=== PATIENT | female | born 1980 | race Caucasian/White ===

== ENCOUNTER → 2020-10-01 | Outpatient (CLI) | payer BC ==
[~2020-10-01] MED LIST: MACROBID 100 M100 MG PO; NORCO 10-325 T1 EACH PO; TORADOL 10 MG T10 MG PO
== END ==
LOC: KOH-I 09:26
DX: R91.1 Solitary pulmonary nodule (principal)
CPT/HCPCS: 71250

== ENCOUNTER → 2021-11-28 | Outpatient (CLI) | payer BC | LOC: CT 14:19 | DX: R91.1 Solitary pulmonary nodule (principal) | CPT/HCPCS: 71270; Q9967 ==